=== PATIENT | male | born 1970 | race Caucasian/White ===

== ENCOUNTER 2018-09-22 20:37 | Emergency (ER) | payer OTHER, SELFPAY ==
[2018-09-22 20:43] VITALS: BP 147/83; PULSE 76; RESP 16; TEMP 36.6; O2SAT 98
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
[2018-09-22] MEDS: Tetanus & Diphtheria Tox,ADULT 0.5 ML VIAL IM (21:30)
[2018-09-22] MEDS: Cephalexin 500 MG CAP PO (21:31)
--- NOTE | 2018-09-22 21:50 | DI.RAD_ITS ---
SYMPTOM/DIAGNOSIS: PAIN, LACERATION RIGHT FOURTH TOE: There is a comminuted fracture of the distal phalanx of the fourth toe along with soft tissue laceration. There is some displacement of fracture fragments. No foreign body is seen. There is slight deformity of the proximal phalanx of the fifth toe which is consistent with an old healed fracture. IMPRESSION: Comminuted fracture of the distal phalanx of the fourth toe.
--- NOTE | 2018-09-22 22:10 | NUR.NOTE ---
Nursing Note: Post op boot given to patient.
--- NOTE | 2018-09-22 22:45 | DI.VRAD_ITS ---
EXAM: XR Right Toe(s) EXAM DATE/TIME: 09/22/2018 9:23 PM CLINICAL HISTORY: 47 years old, male; Pain; Toes; Patient HX: 4th right toe laceration TECHNIQUE: Imaging protocol: XR Right toes. Views: Minimum 2 views. COMPARISON: No relevant prior studies available. FINDINGS: Bones/joints: Comminuted minimally displaced fractures involving tuft and base of fourth distal phalanx. Soft tissues: Soft tissue swelling. No radiopaque foreign body demonstrated. IMPRESSION: 1. Fracture of fourth distal phalanx. 2. Soft tissue swelling. Dictated and Authenticated by: Luisito Vuong MD. Ordering:BILLY Mena MD
== END 2018-09-22 22:10 | disposition home or self-care (01) ==
PROVIDERS: Emergency Provider Emergency Medicine
DX: S92.531B Displaced fracture of distal phalanx of right lesser toe(s), initial encounter for open fracture (principal); W22.09XA Striking against other stationary object, initial encounter; Y93.55 Activity, bike riding
CPT/HCPCS: 12001; 28510; 90471; 73660